=== PATIENT | male | born 1990 | race African-American/Black ===

== ENCOUNTER 2017-07-02 16:31 | Emergency (ER) | payer OTHER ==
[~2017-07-02] VITALS: Ht 177.8 cm; Wt 75.0 kg
[2017-07-02] MEDS ORDERED: POVIDONE-IODINE 10% 15 ML SOLUTION UD TP ONE (17:30)
[2017-07-02] MEDS ORDERED: HYDROCODONE/ACETAMINOPHEN 10-325 MG TABLET PO ONE (17:30)
[2017-07-02] MEDS ORDERED: BACITRACIN 0.9 GM PACKET OINTMENT TP ONE (17:30)
[2017-07-02 18:32] VITALS: BP 112/55
== END 2017-07-02 18:37 | disposition home or self-care (01) ==
LOC: EMS 16:33
DX: S61.201A Unspecified open wound of left index finger without damage to nail, initial encounter (principal); F17.210 Nicotine dependence, cigarettes, uncomplicated; W26.0XXA Contact with knife, initial encounter; Y93.89 Activity, other specified; Y92.89 Other specified places as the place of occurrence of the external cause; Y99.8 Other external cause status
CPT/HCPCS: 99284